=== PATIENT | female | born 1995 | race Caucasian/White ===

== ENCOUNTER → 2019-08-23 09:14 | Outpatient (CLI) | payer BC, SELFPAY ==
--- NOTE | 2019-08-23 09:21 | XR_ITS ---
PROCEDURE: XR CHEST 2V CLINICAL HISTORY: RT RIB PAIN Right-sided chest pain COMPARISON: No exams were available for comparison FINDINGS: The cardiomediastinal silhouette and pulmonary vascularity are within normal limits. The lungs are clear without infiltrates, suspicious nodules, or pleural effusions. Minimal thoracic curvature convex left IMPRESSION: No acute findings. Dictated by: Mark Caputo MD 08/23/2019 09:58 Electronically signed by Mark Caputo MD in [place] 08/23/2019 09:58
== END ==
PROVIDERS: PCP Nurse Practitioner; Visit Provider Nurse Practitioner
DX: R07.81 Pleurodynia (principal); R05 Cough
CPT/HCPCS: 71046

== ENCOUNTER 2020-07-04 12:06 | Emergency (ER) | payer BC, SELFPAY ==
[2020-07-04 13:02] VITALS: BP 127/83; PULSE 81; RESP 18; TEMP 36.7; O2SAT 99; BMI 19.3
--- NOTE | 2020-07-04 13:15 | HMH.EDUTC ---
[facility] [place] [facility] [place] Clinical Impression: Exposure to COVID-19 virus Disposition: Home, Self-Care Condition on Discharge: Good Instructions: Preventing the Spread of Coronavirus Discharge Instructions Additional Instructions: *Monitor Temp, Over the counter Motrin or Tylenol as directed/as needed Tylenol every 4 hours and Motrin every 6 hours (as long as your family doctor has told you that you can take it) for fever or pain. and straight to ER if unable to lower temp less than 101.0 after medication given *Warm salt water gargles may help to soothe the throat *Throat Lozenges *Warm fluids like tea with honey may help to soothe the throat *Sleep elevated *Humidifier/Vaporizer Follow up IMMEDIATELY for new or worsening symptoms or no Noticeable improvement over the next 48-72 hours. 911 for difficulty breathing or swallowing You was tested for today for COVID19 your test result should be back in the next 24-48 hours, you may call to the [facility] later today or tomorrow to see if your test results are back and the result [phone] [facility] hours are 9am-9pm You was given a handout with instructions for Self Quarantine and Self isolation for while you wait on test results and what to do if they are positive If you are positive the Health Dept will be contacting you also Referrals: Mercy Coates APRN [Primary Care Provider] - As needed Forms: Work/School Release Time of Disposition: 13:16 Medical Decision Making - Nic Inquiry Pt receiving controlled substance: No Nic was queried for this patient: No Vital Signs: 07/04/20 13:02 Temperature 98.1 F Temperature Source Oral Pulse Rate [Radial] 81 Respiratory Rate 18 Blood Pressure [Right Arm] 127/83 Blood Pressure Mean [Right Arm] 97 Blood Pressure Source [Right Arm] Automatic Cuff Blood Pressure Position [Right Arm] Sitting 02 Sat by Pulse Oximetry 99 Oxygen Delivery Method Room Air Orders (Tests/Meds): ORDERS Category Date Time Status Covid-19 Nasal PCR Sendout [facility] 07/04/20 13:05 Ordered [facility] [place] [facility] [place] HPI - General Stated complaint: covid exposure Time Seen by Provider: 07/04/20 13:15 Mode of Arrival: Ambulatory Source of Information: Patient Limitations: No Limitations Description of Symptoms (Recalled from Triage Doc. by RN): covid test HEENT Symptoms (Recalled from RN notes): No Resp Symptoms (Recalled from RN notes): No Skin Symptoms (Recalled from RN notes): No MS Symptoms (Recalled from RN notes): No Functional Status (Recalled from RN notes): wnl - History of Present Illness Provider Complaint: Patient states that she was exposed to COVID about 11 days ago and not having any symptoms wanted to get tested to make sure that she didnt have COVID - Related Data Home Medications Medication Instructions Recorded Confirmed loratadine 10 mg capsule 10 mg PO ONCE 02/19/18 05/18/19 prenat.vits,linda,lmt-ymoo-sngop 1 tab PO QHS 02/19/18 05/18/19 topiramate 50 mg capsule,extended 50 mg PO ONCE 02/19/18 05/18/19 release 24 hr biotin 2,500 mcg capsule 2,500 mcg PO DAILY 05/21/20 Previous Rx's Medication Instructions Recorded norethindrone 1 mg-ethin. 1 cap PO DAILY #28 cap 05/21/20 estradiol 20 mcg (24)-iron 75 mg (4) capsule Allergies Allergy/AdvReac Type Severity Reaction Status Date / Time No Known Allergies Allergy Verified 05/21/20 14:24 - Worker's Comp Is this a Worker's Comp case?: No [facility] History - Hepatitis A Screen Drug use history?: No High risk sexual behaviors?: No History of sexually transmitted infection?: No Currently employed?: No Childcare worker?: No Do you have indoor plumbing?: Yes Do you have electricity?: Yes Attestation statement:: This patient has been screened for Hepatitis A risk factors. I have reviewed the patient's past medical history: Yes Medical History: Reports:: Migraine Comment: seasonal allergies. asthma. migraines Other Surgeries: Yes: No Previous Surgery Amputa
[2020-07-04 13:34] VITALS: BP 127/83; PULSE 81; RESP 18; TEMP 36.7; O2SAT 99
[2020-07-05 10:33] LABS: Covid-19 Nasal PCR Sendout Lex NOT DETECTED
== END 2020-07-04 13:34 | disposition home or self-care (01) ==
PROVIDERS: Emergency Provider Nurse Practitioner; PCP Nurse Practitioner
DX: Z20.828 Contact with and (suspected) exposure to other viral communicable diseases (principal)
CPT/HCPCS: 99201; U0004

== ENCOUNTER → 2020-10-11 15:21 | Outpatient (CLI) | payer BC, SELFPAY ==
--- NOTE | 2020-10-11 15:31 | XR_ITS ---
PROCEDURE: XR ANKLE RT MIN 3V CLINICAL INDICATION: RT ANKLE SWELLING COMPARISON: No exams were available for comparison FINDINGS: IMPRESSION: No acute findings. Dictated by: Mark Caputo MD 10/11/2020 15:54 Mark Caputo MD in [place] 10/11/2020 15:54
[2020-10-11 17:34] LABS: Uric Acid 4.1 mg/dl (2.5-6.2)
[2020-10-11 17:39] LABS: C-Reactive Protein 1.6 mg/L (0-4)
[2020-10-11 18:07] LABS: Erythrocyte Sedimentation Rate 18 mm/hr (0-20)
[2020-10-13 13:21] LABS: RA Latex Turbid. <10.0 IU/mL (0.0-13.9)
[2020-10-15 17:39] LABS: Antinuclear Antibodies, IFA Positive (.)
== END ==
PROVIDERS: PCP Nurse Practitioner Family; Visit Provider Nurse Practitioner Family
DX: M25.471 Effusion, right ankle (principal)
CPT/HCPCS: 36415; 73610; 84550; 85651; 86038; 86140; 86431

== ENCOUNTER → 2020-11-23 07:50 | Outpatient (CLI) | payer BC, SELFPAY ==
--- NOTE | 2020-11-23 07:55 | MR_ITS ---
PROCEDURE: MR ANKLE RT WO CON CLINICAL INDICATION: RT ANKLE EDEMA Right ankle pain, lateral ankle pain COMPARISON: DX XR ANKLE RT MIN 3V from 10/11/2020 TECHNIQUE: Routine multiplanar multi echo sequences are performed without gadolinium enhancement. FINDINGS: Bones: Unremarkable Ligaments: unremarkable Tendons: No obvious tendon tear is. Small amount of fluid is present along the tibialis posterior at the level of the mid calcaneus and a small amount of fluid along the posterior aspect of the flexor digitorum longus at the upper talus region Joints: No significant degenerative change. Small amount of fluid is present along the posterior aspect of the talus and anterior talotibial region as well as along the anterior and distal aspect of the talus. No evidence of tarsal coalition. Soft tissues: Unremarkable. Plantar fascia has an unremarkable appearance. And may be due to tenosynovitis. IMPRESSION: 1. Small amount of fluid along the tibialis posterior and flexor digitorum longus tendon which may be seen with tenosynovitis. 2. Otherwise negative Dictated by: Mark Caputo MD 11/25/2020 08:26 Mark Caputo MD in [place] 11/25/2020 08:27
== END ==
PROVIDERS: PCP Nurse Practitioner Family; Visit Provider Nurse Practitioner Family
DX: M25.571 Pain in right ankle and joints of right foot (principal); M25.471 Effusion, right ankle
CPT/HCPCS: 73721

== ENCOUNTER → 2022-06-03 12:46 | Outpatient (CLI) | payer BC, SELFPAY ==
--- NOTE | 2022-06-03 13:13 | XR_ITS ---
FINAL REPORT CLINICAL HISTORY: pain, swelling FINDINGS: RIGHT FOOT Three weight-bearing views of the right foot were obtained. There is no acute fracture or dislocation. The joint spaces and mortise are intact. There is no soft tissue abnormality. IMPRESSION: No acute bony abnormality. Reviewed, Interpreted and Dictated by Carlos Coleman III, MD Transcribed by Christine Olsen Authenticated and [facility]
--- NOTE | 2022-06-03 13:13 | XR_ITS ---
FINAL REPORT CLINICAL HISTORY: pain, swelling FINDINGS: RIGHT ANKLE Three weight-bearing views of the right ankle were obtained. There is no acute fracture or dislocation. The joint spaces and mortise are intact. There is no soft tissue abnormality. IMPRESSION: No acute bony abnormality. Reviewed, Interpreted and Dictated by Carlos Coleman III, MD Transcribed by Christine Olsen Authenticated and [facility]
== END ==
PROVIDERS: PCP Family Medicine; Visit Provider Podiatrist
DX: M79.671 Pain in right foot (principal); R60.0 Localized edema
CPT/HCPCS: 73610; 73630

== ENCOUNTER → 2023-05-19 10:33 | Outpatient (CLI) | payer BC, SELFPAY ==
--- NOTE | 2023-05-19 10:39 | XR_ITS ---
FINAL REPORT CLINICAL HISTORY: CHRONIC PAIN x few days FINDINGS: LEFT SHOULDER Four views were obtained. There is no fracture or dislocation. The joint spaces appear normal. No soft tissue abnormality is identified. IMPRESSION: No acute process. Reviewed, Interpreted and Dictated by Carlos Coleman III, MD Transcribed by Keiko Fleming Authenticated and [facility]
== END ==
PROVIDERS: PCP Nurse Practitioner Family; Visit Provider Nurse Practitioner Family
DX: M25.512 Pain in left shoulder (principal); G89.29 Other chronic pain
CPT/HCPCS: 73030

== ENCOUNTER → 2023-06-16 16:52 | Outpatient (CLI) | payer BC, SELFPAY ==
--- NOTE | 2023-06-16 16:56 | MR_ITS ---
PROCEDURE INFORMATION: Exam: MR Left Upper Extremity Joint Without Contrast; Shoulder Exam date and time: 06/16/2023 5:18 PM Age: 27 years old Clinical indication: Pain; Shoulder; Left; Additional info: Trapezius strain TECHNIQUE: Imaging protocol: Magnetic resonance imaging of the left upper extremity without contrast. Exam focused on the shoulder. COMPARISON: CR XR SHOULDER LT MIN 2V 05/19/2023 11:05 AM FINDINGS: Limitations: Motion artifact. Bones/joints: There is no acute fracture or dislocation. No aggressive bone lesions are present. There is no significant degenerative change. The undersurface of the acromion has a normal curvature, consistent with a type II acromion. A normal amount of fluid is present in the glenohumeral joint. A benign bone island is present in the medial humeral neck. Glenoid labrum: No convincing tear on this non-arthrographic study. Bursae: A trace amount of fluid is present in the subacromial-subdeltoid bursa. Supraspinatus tendon: No tear or significant tendinosis involves the supraspinatus tendon. Infraspinatus tendon: No tear or significant tendinosis involves the infraspinatus tendon. Subscapularis tendon: No tear or significant tendinosis involves the subscapularis tendon. Teres minor tendon: No tear or significant tendinosis involves the teres minor tendon. Tendon of biceps brachii: The long head of the biceps tendon is normally situated within the bicipital groove. Glenohumeral ligaments: Unremarkable as visualized. Soft tissues: The visualized portion of the trapezius muscle is normal. IMPRESSION: 1. Normal appearance of the visualized portion of the trapezius muscle. 2. Trace subacromial-subdeltoid bursitis.
== END ==
PROVIDERS: PCP Nurse Practitioner Family; Visit Provider Nurse Practitioner
DX: S46.812A Strain of other muscles, fascia and tendons at shoulder and upper arm level, left arm, initial encounter (principal); S43.422A Sprain of left rotator cuff capsule, initial encounter; Y99.9 Unspecified external cause status
CPT/HCPCS: 73221

== ENCOUNTER 2024-09-19 07:41 | Outpatient (CLI) | payer BC, SELFPAY ==
--- NOTE | 2024-09-19 07:51 | US_ITS ---
FINAL REPORT CLINICAL HISTORY: FATTY LIVER COMPARISON: None FINDINGS: Sonographic images of the right upper quadrant were obtained. The pancreas is partially obscured.The liver has an unremarkable appearance. There is an echogenic nonshadowing focus contiguous with the wall of the gallbladder, which does not appear to move in the decubitus position, most likely a gallbladder polyp. There is no evidence of biliary ductal dilatation.The common duct measures 2 mm. Limited images of the right kidney are unremarkable. IMPRESSION: Echogenic nonshadowing focus contiguous with wall of the gallbladder, most likely a gallbladder polyp. No biliary ductal dilatation is identified. Normal echogenicity of the liver. Reviewed, Interpreted and Dictated by Samson Bates MD Transcribed by Flakita Moser Authenticated and [facility]
== END 2024-09-19 23:59 | disposition home or self-care (01) ==
PROVIDERS: PCP Nurse Practitioner; Visit Provider Nurse Practitioner
DX: K76.0 Fatty (change of) liver, not elsewhere classified (principal)
CPT/HCPCS: 76705